=== PATIENT | male | born 1985 | race Caucasian/White ===

== ENCOUNTER 2018-12-14 12:35 | Emergency (ER) | payer MEDICAID ==
[~2018-12-14] VITALS: Ht 188 cm; Wt 98.4 kg
[2018-12-14 12:38] VITALS: BP 117/65
--- NOTE | 2018-12-14 12:38 | NUR ---
33M C/O HEARTBURN SYMPTOMS X 1 MONTH AFTER ORAL INTAKE. FEELS LIKE THERE IS LUMP IN THROAT; WORSE AFTER EATING. A/OX4 AND FOLLOWS COMMANDS; PATIENT STATES THERE IS NO PAIN, BUT MORE DISCOMFORT IN THE EPIGASTRIC REGION. HE ALSO STATES, "WHEN I EAT, I FEEL THAT SOMETHING IS STUCK AND ONE TIME, A CHUNK OF FOOD CAME UP." ALTHOUGH THERE IS NO PAIN, PT. TOOK IBUPROFEN. ERMD MADE AWARE. SIDE RAILSX1. WILL CONTINUE TO MONITOR. NO PMHX NKA
--- NOTE | 2018-12-14 12:41 | NUR ---
Patient ambulated to bed 6. RN evaluating patient at bedside.
[2018-12-14] MEDS ORDERED: DICYCLOMINE HCL LIQUID 20 MG, ALUMINUM HYD/MAG/SIMETHICONE 30 ML, LIDOCAINE VISCOUS 2% ... PO ONE ×3 (12:45)
--- NOTE | 2018-12-14 12:55 | NUR ---
Dr. Rucker evaluating patient at bedside.
[2018-12-14 13:19] VITALS: BP 117/65
--- NOTE | 2018-12-14 13:19 | NUR ---
Patient discharged with v/s stable. Written and verbal after care instructions given and explained. Patient alert, oriented and verbalized understanding of instructions. Ambulatory with steady gait. All questions addressed prior to discharge. ID band removed. Patient advised to follow up with PMD. Rx of PRILOSEC given. Patient educated on indication of medication including possible reaction and side effects. Opportunity to ask questions provided and answered.
== END 2018-12-14 13:19 | disposition home or self-care (01) ==
LOC: MED 12:35
DX: R10.13 Epigastric pain (principal); F17.210 Nicotine dependence, cigarettes, uncomplicated; Z98.890 Other specified postprocedural states
CPT/HCPCS: 99283

== ENCOUNTER 2019-10-10 10:56 | Emergency (ER) | payer MEDICAID, OTHER ==
[~2019-10-10] VITALS: Ht 182.9 cm; Wt 99.8 kg
[2019-10-10 11:00] VITALS: BP 128/76
--- NOTE | 2019-10-10 11:23 | NUR ---
emt at bedside doin ekg.
--- NOTE | 2019-10-10 11:24 | NUR ---
C/O SUDDEN ONSET OF LEFT SIDED ANTERIOR CHEST WALL PAIN , PRESSURE RADIATING LUE X 3DAYS AGO--- CHEST WALL PAIN PERSIST DURING A DEEP INPIRATION OR IF SNEEZES PAIN OCCURS DENIES SOB NO N/V/D , PT AOX4 , AFDIBRILE , AMBULATORY WITH STEADY GAIT. SCE, FLAT SOFT ABDOMEN. HX---DENIES RX---NONE
--- NOTE | 2019-10-10 11:29 | NUR ---
XRAY AT BEDSIDE EVMARLEENUTING PT.
--- NOTE | 2019-10-10 11:43 | NUR ---
DR MATTA AT BEDSIDE EVALUATING PT.
[2019-10-10 12:04] VITALS: BP 105/51
--- NOTE | 2019-10-10 12:05 | NUR ---
Patient discharged with v/s stable. Written and verbal after care instructions given and explained. Patient verbalized understanding. Ambulatory with steady gait. All questions addressed prior to discharge. Advised to follow up with PMD.
== END 2019-10-10 12:05 | disposition home or self-care (01) ==
LOC: MED 10:56
DX: R07.89 Other chest pain (principal); F17.210 Nicotine dependence, cigarettes, uncomplicated; Z71.6 Tobacco abuse counseling
CPT/HCPCS: 71045; 93005; 99283; Q0092

== ENCOUNTER 2023-10-22 20:24 | Emergency (ER) | payer BC, OTHER ==
[~2023-10-22] VITALS: Ht 182.9 cm; Wt 104.3 kg
[~2023-10-22 20:24] MED LIST: FAMO-90 PO; MAG-43 PO; ONDA-188 SL
[2023-10-22 20:39] VITALS: BP 134/76; PULSE 92; RESP 16; TEMP 98.3; O2SAT 98
--- NOTE | 2023-10-22 20:48 | NUR ---
TO BED 2 FOLLOWING TRIAGE
--- NOTE | 2023-10-22 21:26 | NUR ---
Written and verbal after care instructions given and explained. Patient verbalized understanding. Ambulatory with steady gait. All questions addressed prior to discharge. Advised to follow up with PMD.
== END 2023-10-22 21:26 | disposition home or self-care (01) ==
LOC: MED 20:24
DX: L03.114 Cellulitis of left upper limb (principal); Z79.1 Long term (current) use of non-steroidal anti-inflammatories (NSAID); Z79.899 Other long term (current) drug therapy
CPT/HCPCS: 99281